=== PATIENT | female | born 1950 | race Caucasian/White ===

== ENCOUNTER 2022-01-15 22:04 | Outpatient (CLI) | payer MEDICARE, BC, SELFPAY | END 2022-01-15 22:05 | disposition home or self-care (01) | LOC: AMB 01-30 12:28 | PROVIDERS: Visit Provider Family Medicine | DX: S09.90XA Unspecified injury of head, initial encounter (principal); W01.0XXA Fall on same level from slipping, tripping and stumbling without subsequent striking against object, initial encounter; Y92.480 Sidewalk as the place of occurrence of the external cause | CPT/HCPCS: A0425; A0427 ==

== ENCOUNTER 2022-01-15 22:34 | Emergency (ER) | payer MEDICARE, BC, SELFPAY ==
[2022-01-15 22:39] VITALS: BP 170/89; PULSE 79; RESP 16; TEMP 36.4; O2SAT 99; BMI 27.4
--- NOTE | 2022-01-15 22:50 | CRLHL7_ITS ---
For Patients: As a result of the Cures Act, medical imaging exams and procedure reports are released immediately into your electronic medical record. You may view this report before your referring provider. If you have questions, please contact your health care provider. INDICATION: Trauma. TECHNIQUE: CT cervical spine without contrast. COMPARISON: None. FINDINGS: Vertebrae: Alignment is normal. There are no fractures or suspicious bony lesions. Discs and facet joints: There are diffuse degenerative changes in the disc spaces and facet joints. Extraspinal findings: Paraspinous soft tissues are unremarkable. IMPRESSION: 1. No sign of acute injury. 2. Multilevel degenerative spondylosis. Please note that all CT scans at this facility use dose modulation, iterative reconstruction, and/or weight-based dosing when appropriate to reduce radiation dose to as low as reasonably achievable. Dictated by Tessy Mondragon MD @ 01/15/2022 11:27:33 PM (Electronically Signed)
--- NOTE | 2022-01-15 22:50 | CRLHL7_ITS ---
For Patients: As a result of the Century Cures Act, medical imaging exams and procedure reports are released immediately into your electronic medical record. You may view this report before your referring provider. If you have questions, please contact your health care provider. INDICATION: Fall, hit side of head.. TECHNIQUE: Head CT without contrast. COMPARISON: None. FINDINGS: CSF spaces: Within normal limits for age. Brain parenchyma and extra-axial spaces: There are nonspecific low attenuation white matter changes consistent with chronic microvascular disease. No sign of mass, hemorrhage, or midline shift. Skull base and calvarium: The visualized paranasal sinuses and mastoid air cells demonstrate no acute or significant findings. The visualized orbits are grossly unremarkable. No skull fractures. Small scalp hematoma along the anterior left frontal temporal region. IMPRESSION: No intracranial hemorrhage identified. No skull fractures identified. Please note that all CT scans at this facility use dose modulation, iterative reconstruction, and/or weight-based dosing when appropriate to reduce radiation dose to as low as reasonably achievable. Dictated by Tessy Mondragon MD @ 01/15/2022 11:26:24 PM (Electronically Signed)
--- NOTE | 2022-01-15 23:35 | ED.NURSE ---
pt wound cleaned. MD informed. pt used wheelchair to get to restroom. No complaints of dizzy or nausea.
--- NOTE | 2022-01-16 00:03 | CRLHL7_ITS ---
For Patients: As a result of the Cures Act, medical imaging exams and procedure reports are released immediately into your electronic medical record. You may view this report before your referring provider. If you have questions, please contact your health care provider. Indication: Trauma. Technique: Left hand, 2 views. Comparison: None. Findings: Bones: Alignment is normal. No fractures or bone lesions. Joint spaces: Mild degenerative changes are identified in multiple joints throughout the hand.. Soft tissues: Unremarkable. Impression: No sign of acute injury. Dictated by Tessy Mondragon MD @ 01/16/2022 12:38:00 AM (Electronically Signed)
--- NOTE | 2022-01-16 00:08 | ED.GENADULT ---
HPI - General Adult General Chief complaint: Fall/Minor Trauma Stated complaint: Fall Time Seen by Provider: 01/15/22 22:58 History of Present Illness HPI narrative: Patient is a 71-year-old female who was in town attending her class reunion at [place]. She was walking in the dark caring several bags she stumbled on a curb landing on her face, left shoulder, left hand. She did not lose consciousness. She could not get up and laid on the ground until a passerby called the ambulance. She does not recall when her last tetanus was. She has pain along the left side of her head, left shoulder, left hand but no chest pains or shortness of breath. She is fully awake and alert. She is accompanied by several of her classmates. She has a previous history of a fall and head injury resulting in to subdural hematomas. She does take aspirin. Related Data Home Medications Medication Instructions Recorded Confirmed aspirin 81 mg capsule 81 mg PO DAILY 01/15/22 01/15/22 atenolol 25 mg tablet 25 mg PO DAILY 01/15/22 01/15/22 atorvastatin 20 mg tablet 20 mg PO DAILY 01/15/22 01/15/22 vitamin B complex (B 1 tab PO DAILY 01/15/22 01/15/22 Complex-Vitamin B12 tablet) Allergies Allergy/AdvReac Type Severity Reaction Status Date / Time No Known Drug Allergies Allergy Verified 01/15/22 22:55 [facility] Medical History (Updated 01/16/22 @ 00:29 by Felipe Tyler MD) Hyperlipidemia Hypertension Subdural hematoma Social History (Updated 01/16/22 @ 00:29 by Felipe Tyler MD) Narrative: Lives in [place]. Nonsmoker. Retired. Exam Narrative: Exam Narrative: Vitals noted. HEENT: Conjunctiva clear. Tympanic membranes are pearly white bilaterally. Posterior pharynx is clear without erythema or exudate. Neck is supple without adenopathy, thyromegaly, carotid bruit. Lungs: Clear to auscultation in all abbasi. No wheezes, rales, rhonchi. Heart: Regular rate and rhythm without murmur. Abdomen: Soft and nontender. No guarding, rigidity, rebound. Bowel sounds are normal. No palpable masses. Extremities: She has some bruising of her left wrist, 5th finger, thumb. She has full range of motion but there is some pain. Her left shoulder is also bruised but also has full range of motion. Skin: She has a 1 cm superficial laceration near her left denominational that is actively bleeding. She has of deep 4 cm laceration superior to this that is down to the galea but not through it. Neurologic: Awake, alert, fully oriented. Neurologic exam is nonfocal. Const: Vital Signs, click to edit/add: Vital Signs - 24 hr 01/15/22 22:39 Temperature 97.6 F Pulse Rate [Right Pulse Oximeter] 79 Respiratory Rate 16 Blood Pressure [Ri ght Upper Arm] 170/89 H Pulse Oximetry 99 Oxygen Delivery Me thod Room Air Documenting provider has reviewed patient's vital signs: yes Course Course Hospital Course: Patient was seen and examined and a CT of her head and neck are ordered. There was no intracranial bleeding. She has degenerative disease in her neck but no acute findings. TD booster is given. Reevaluation(s) Reevaluation #1: Her wounds are prepped and draped in sterile fashion, scrubbed with a Hibiclens solution, numbed with 1% lidocaine with epinephrine. The smaller lacerations closed with two simple interrupted sutures of 4-0 Ethilon. The semi lunate laceration is closed with seven simple interrupted sutures of 4-0 Ethilon deep enough to also reapproximate the subcutaneous tissue. She had good wound edge approximation and hemostasis. Estimated blood loss is difficult but I would imagine that she lost about 40 mL of blood here and much more prior to her arrival. Reevaluation #2: Patient is re-evaluated and I did order an x-ray of her left hand. Vital Signs Vital signs: Initial Vital Signs Temperature 97.6 F 01/15/22 22:39 Temperature Source Temporal Artery Scan 01/15/22 22:39 Pulse Rate 79 01/15/22 22:39 Respiratory Rate 16 01/15/22 22:39 Blood Pressure 170/89 H 01/15/22 22:39 Blood Pressure Mean 116 01/15/22 22:39 Blood Pressure Position Supine 01/15/22 22:39 Pulse Oximetry 99 08 22:39 Oxygen Delivery Method 01/15/22 22:39 Vital Signs Temperature 97.6 F 01/15/22 22:39 Pulse Rate 79 01/15/22 22:39 Respiratory Rate 16 01/15/22 22:39 Blood Pressure 170/89 H 01/15/22 22:39 Pulse Oximetry 99 01/15/22 22:39 Oxygen Delivery Method 01/15/22 22:39 Temperature 97.6 F 01/15/22 22:39 Pulse Rate 79 01/15/22 22:39 Respiratory Rate 16 01/15/22 22:39 Blood Pressure 170/89 H 01/15/22 22:39 Pulse Oximetry 99 01/15/22 22:39 Oxygen Delivery Method 01/15/22 22:39 Discharge Plan Discharge Clinical Impression: Closed head injury, Facial laceration, Hypertension, Contusion of left hand Patient Disposition: Home w/ Parent or Adult Condition: Improved Additional Instructions: Tylenol for pain, ice frequently, rest. Sutures out in 7-10 days. Watch for signs of infection. No aspirin for five days. Prescriptions: No Action atenolol 25 mg tablet 25 mg PO DAILY Rx Instructions: take 1/2 tablet everyday atorvastatin 20 mg tablet 20 mg PO DAILY aspirin 81 mg capsule 81 mg PO DAILY vitamin B complex [B Complex-Vitamin B12] Tablet 1 tab PO DAILY Stand Alone Forms: [facility] Info Instructions
[2022-01-16 01:03] VITALS: BP 154/99; PULSE 71; RESP 16; O2SAT 96
== END 2022-01-16 01:40 | disposition home or self-care (01) ==
LOC: ED 01-16 01:36
PROVIDERS: Emergency Provider Family Medicine
DX: S01.81XA Laceration without foreign body of other part of head, initial encounter (principal); S60.222A Contusion of left hand, initial encounter; I10 Essential (primary) hypertension; W01.0XXA Fall on same level from slipping, tripping and stumbling without subsequent striking against object, initial encounter
CPT/HCPCS: 12013; 70450; 72125; 73120; 90471; 90714; 99284; 99285